=== PATIENT | female | born 1995 | race Caucasian/White ===

== ENCOUNTER 2017-07-18 15:09 | Emergency (ER) | payer MEDICAID ==
[2017-07-18] MEDS: LIDOCAINE/MYLANTA 40 ML BTL PO (16:08)
[2017-07-18 16:14] LABS: URINE BLOOD (Dip) POC Negative (NEGATIVE); URINE GLUCOSE (Dip) POC Negative (NEGATIVE); URINE KETONES (Dip) POC Negative (NEGATIVE); URINE LEUKOCYTE EST (Dip) POC Negative (NEGATIVE); URINE NITRITE (Dip) POC Negative (NEGATIVE); URINE TOTAL PROTEIN POC Trace (NEGATIVE)
== END 2017-07-18 17:12 | disposition home or self-care (01) ==
LOC: FTE 15:09
DX: K29.70 Gastritis, unspecified, without bleeding (principal); H66.91 Otitis media, unspecified, right ear
CPT/HCPCS: 81003; 81025; 99283